=== PATIENT | female | born 1960 | race Caucasian/White ===

== ENCOUNTER 2019-05-28 08:48 | Day surgery (SDC) | payer OTHER ==
[2019-05-28 09:41] VITALS: BMI 34.2
[2019-05-28] MEDS ORDERED: SUCRALFATE 1 GM/10 ML UNIT DOSE CUPS PO ONE (11:15)
[2019-05-28 11:27] VITALS: TEMP 97.6
[2019-05-28 12:08] VITALS: PULSE 71
[2019-05-28 12:10] VITALS: BP 126/64
--- NOTE | 2019-06-01 15:52 | PATH ---
Surgical Pathology Report Patient Name: DEISI POPE [facility]. Rec. #: [id number] /Age/Gender: 1960 (Age: 58) / F Account: [id number] Location: [facility]-ENDOSCOPY Taken: 05/28/2019 Received: 05/29/2019 Reported: 06/01/2019 Physicians: Jairo Ma D.O. Specimen(s) Received A: BODY AND ANTRUM B: DUODENUM AND DUODENAL BULB C: CARDIA POLYP Clinical History Dyspepsia, GERD, history of H. Pylori Postoperative diagnosis: Gastritis Final Diagnosis A. STOMACH, BODY AND ANTRUM, BIOPSY: GASTRIC ANTRAL AND BODY MUCOSA WITH MILD CHRONIC GASTRITIS. IMMUNOHISTOCHEMICAL STAIN FOR H. PYLORI IS NEGATIVE. B. DUODENUM AND DUODENAL BULB, BIOPSY: DUODENAL MUCOSA WITH MILD CHRONIC DUODENITIS AND PRESERVED VILLOUS ARCHITECTURE. C. CARDIA POLYP, BIOPSY: FUNDIC GLAND POLYP. IMMUNOHISTOCHEMICAL STAIN FOR H. PYLORI IS NEGATIVE. Electronically Signed Lee Ann Camacho M.D. Gross Description A. Received in formalin, labeled "body and antrum biopsy" are 5 baer, irregular portions of soft tissue ranging from 0.2-0.5 cm. in greatest dimension. The specimens are submitted in toto in one cassette. B. Received in formalin, labeled "duodenum and duodenal bulb biopsy" are 2 baer, irregular portions of soft tissue measuring 0.2 and 0.4 cm. in greatest dimension. The specimens are submitted in toto in one cassette. C. Received in formalin, labeled "cardia polyp biopsy" are 3 baer, irregular portions of soft tissue averaging 0.4 cm. in greatest dimension. The specimens are submitted in toto in one cassette. DL/05/29/2019 saudi05/29/2019
== END 2019-05-28 12:00 | disposition home or self-care (01) ==
LOC: JASU-ENDO 08:48
PROVIDERS: ATTEND Internal Medicine Gastroenterology
PROC: 0DB68ZX Excision of Stomach, Via Natural or Artificial Opening Endoscopic, Diagnostic (ICD-10-PCS; 2019-05-28)
PROC: 0DB98ZX Excision of Duodenum, Via Natural or Artificial Opening Endoscopic, Diagnostic (ICD-10-PCS; principal; 2019-05-28 09:00)
DX: K29.50 Unspecified chronic gastritis without bleeding (principal); K29.80 Duodenitis without bleeding; E11.9 Type 2 diabetes mellitus without complications; Z79.84 Long term (current) use of oral hypoglycemic drugs
CPT/HCPCS: 82962; 88305-TC; 88342-TC

== ENCOUNTER 2022-11-21 05:19 | Day surgery (SDC) | payer OTHER ==
[2022-11-15 17:39] VITALS: BMI 34.2
[2022-11-21] MEDS ORDERED: MIDAZOLAM HCL 2 MG/2 ML SINGLE DOSE VIAL ONE (09:32)
[2022-11-21] MEDS ORDERED: ALBUTEROL SO4 HFA INHALER IH ONE (09:37)
[2022-11-21] MEDS ORDERED: LIDOCAINE 1%/EPI 1:100000 (20 ML MULTI DOSE VIAL) INF ONE (10:05)
[2022-11-21] MEDS ORDERED: PROPOFOL 20 ML ONE (10:05)
[2022-11-21] MEDS ORDERED: BUPIVACAINE HCL/PF 0.5% (5 MG/ML) 30 ML VIAL IJ ONE (10:06)
[2022-11-21] MEDS ORDERED: oxyCODONE HCL 5 MG TABLET PO PRN (10:30)
[2022-11-21] MEDS ORDERED: LACTATED RINGERS SOLUTION 1,000 ML IV SCH (10:30)
[2022-11-21] MEDS ORDERED: ACETAMINOPHEN INJECTION 100 ML IVPB ONE (10:32)
[2022-11-21] MEDS ORDERED: ACETAMINOPHEN 1000 MG/100 ML BAG IVPB ONE ×2 (10:34→10:44)
[2022-11-21 12:42] VITALS: RESP 18
[2022-11-21 12:45] VITALS: PULSE 72
[2022-11-21] MEDS ORDERED: ONDANSETRON 4 MG/2 ML VIAL ONE (13:21)
[2022-11-21] MEDS ORDERED: ONDANSETRON 4 MG/2 ML VIAL IVPB ONE (13:45)
[2022-11-21 14:04] VITALS: BP 120/58; TEMP 97
== END 2022-11-21 14:14 | disposition home or self-care (01) ==
LOC: JASU-SURG 05:19
PROVIDERS: ATTEND Orthopaedic Surgery
PROC: 0SBD4ZZ Excision of Left Knee Joint, Percutaneous Endoscopic Approach (ICD-10-PCS; principal; 2022-11-21 08:45)
DX: S83.232A Complex tear of medial meniscus, current injury, left knee, initial encounter (principal); X58.XXXA Exposure to other specified factors, initial encounter; Y93.89 Activity, other specified; Y92.89 Other specified places as the place of occurrence of the external cause; Y99.9 Unspecified external cause status
CPT/HCPCS: 82962; 94760

== ENCOUNTER 2023-01-08 07:45 | Day surgery (SDC) | payer OTHER ==
[2023-01-01 15:01] VITALS: BMI 32.7
[2023-01-08] MEDS ORDERED: VANCOMYCIN 1,000 MG VIAL (RESTRICTED TO ID ONLY) ONE (08:10)
[2023-01-08] MEDS ORDERED: THROMBIN (BOVINE) 5,000 UNIT VIAL TP ONE (08:10)
[2023-01-08] MEDS ORDERED: ceFAZolin SODIUM 1 GM VIAL ONE ×2 (08:10→10:07)
[2023-01-08] MEDS ORDERED: CEFAZOLIN 2 GM in DEXTROSE 5%-WATER - 50 ML IVPB ONE (08:13)
[2023-01-08] MEDS ORDERED: TRANEXAMIC ACID 1000 MG/10 ML VIAL IVPUSH ONE (08:13)
[2023-01-08] MEDS ORDERED: MIDAZOLAM HCL 2 MG/2 ML SINGLE DOSE VIAL ONE (08:45)
[2023-01-08] MEDS ORDERED: ONDANSETRON 4 MG/2 ML VIAL IVPUSH PRN (08:49)
[2023-01-08] MEDS ORDERED: ACETAMINOPHEN 1000 MG/100 ML BAG IVPB ONE (08:50)
[2023-01-08] MEDS ORDERED: oxyCODONE HCL 5 MG TABLET PO PRN (08:50)
[2023-01-08] MEDS ORDERED: KETOROLAC TROMETHAMINE 30 MG/1 ML VIAL IVPUSH SCH (09:00)
[2023-01-08] MEDS ORDERED: BUPIVACAINE HCL/PF 0.5% (5MG/ML) 10 ML VIAL ONE (09:04)
[2023-01-08] MEDS ORDERED: BUPIVACAINE LIPOSOME/PF (EXPAREL) 266 MG/20 ML VIAL ONE (09:04)
[2023-01-08] MEDS ORDERED: TRANEXAMIC ACID 1000 MG/10 ML VIAL ONE (10:07)
[2023-01-08] MEDS ORDERED: DEXAMETHASONE SOD PHOSPHATE 4 MG/1 ML VIAL ONE (10:07)
[2023-01-08] MEDS ORDERED: ONDANSETRON 4 MG/2 ML VIAL ONE (10:07)
[2023-01-08] MEDS ORDERED: PROPOFOL 20 ML ONE ×2 (10:11→10:16)
[2023-01-08] MEDS ORDERED: ACETAMINOPHEN INJECTION 100 ML IVPB ONE (12:50)
[2023-01-08] MEDS: oxyCODONE HCL 10 MG SUSTAINED ACTING TABLET PO SCH ×2 (14:45→21:20)
[2023-01-08] MEDS: oxyCODONE HCL 5 MG TABLET PO PRN ×3 (16:50→23:25)
[2023-01-08] MEDS: LACTATED RINGERS SOLUTION 1,000 ML IV SCH (17:16)
[2023-01-08] MEDS: glipiZIDE 10 MG TABLET (FP) PO SCH (17:17)
[2023-01-08] MEDS: CEFAZOLIN SODIUM 2 GM in DEXTROSE 5%-WATER 100 ML IVPB SCH (17:22)
[2023-01-08] MEDS: ACETAMINOPHEN 500 MG TABLET (FP) PO SCH ×2 (18:55→23:26)
[2023-01-08] MEDS: LISINOPRIL 5 MG TABLET PO SCH (21:19)
[2023-01-08] MEDS: SENNOSIDES/DOCUSATE COMBO (SENNA PLUS) TABLET (UD) PO SCH (21:20)
[2023-01-08] MEDS: EZETIMIBE 10 MG TABLET (FP) PO SCH (21:21)
[2023-01-08] MEDS: INSULIN (LEVEMIR) 100 UNITS/ML UNITS SQ SCH (21:21)
[2023-01-08] MEDS ORDERED: PATIENT'S OWN MEDICATION (NON-FORMULARY) (Icosapent Ethyl [Vascepa] 1 GM Capsule) PO SCH (22:00)
[2023-01-08] MEDS ORDERED: PATIENT'S OWN MEDICATION (NON-FORMULARY) (Insulin Detemir [Levemir Flexpen] 100 UNIT/ML In SQ SCH (22:00)
[2023-01-09] MEDS: CEFAZOLIN SODIUM 2 GM in DEXTROSE 5%-WATER 100 ML IVPB SCH (01:35)
[2023-01-09] MEDS: LEVOTHYROXINE NA 112 MCG TABLET (FP) PO SCH (06:17)
[2023-01-09] MEDS: ACETAMINOPHEN 500 MG TABLET (FP) PO SCH ×3 (06:46→18:30)
[2023-01-09 08:46] LABS: HEMATOCRIT 37.4 % (32.4-45.2); HEMOGLOBIN 12.5 G/dL (10.7-15.3); MCH 28.2 pg (25.7-33.7); MCHC 33.4 g/dl (32.0-36.0); MEAN CELL VOLUME 84.7 fl (80-96); MEAN PLT VOLUME 7.7 fl (7.5-11.1); PLATELET COUNT 247.5 10^3/uL (134-434); RBC 4.42 10^6/uL (3.60-5.2); RDW 14.1 % (11.6-15.6); WHITE BLOOD COUNT 9.6 10^3/uL (4.0-10.8)
[2023-01-09] MEDS ORDERED: ONDANSETRON 4 MG/2 ML VIAL IVPUSH PRN (08:47)
[2023-01-09] MEDS: oxyCODONE HCL 5 MG TABLET PO PRN (09:31)
[2023-01-09] MEDS ORDERED: PATIENT'S OWN MEDICATION (NON-FORMULARY) (Empagliflozin 25 MG Tablet) PO SCH (10:00)
[2023-01-09] MEDS: sitaGLIPtin PHOSPHATE 50 MG TABLET PO SCH (12:18)
[2023-01-09] MEDS: glipiZIDE 10 MG TABLET (FP) PO SCH ×2 (12:18→18:30)
[2023-01-09] MEDS: MULTIVITAMINS (DAILY MVI) TABLET (FP) PO SCH (12:18)
[2023-01-09] MEDS: PANTOPRAZOLE 40 MG TABLET PO SCH (12:18)
[2023-01-09] MEDS: ASPIRIN 325 MG TABLET PO SCH (12:18)
[2023-01-09] MEDS: oxyCODONE HCL 10 MG SUSTAINED ACTING TABLET PO SCH ×3 (12:18→21:19)
[2023-01-09] MEDS: SENNOSIDES/DOCUSATE COMBO (SENNA PLUS) TABLET (UD) PO SCH ×2 (12:36→21:19)
[2023-01-09] MEDS ORDERED: SCOPOLAMINE HYDROBROMIDE 1 PATCH PATCH.TD72 TD SCH (13:15)
[2023-01-09] MEDS: EZETIMIBE 10 MG TABLET (FP) PO SCH (21:19)
[2023-01-09] MEDS: LISINOPRIL 5 MG TABLET PO SCH (21:21)
[2023-01-09] MEDS: INSULIN (LEVEMIR) 100 UNITS/ML UNITS SQ SCH (21:22)
[2023-01-10 01:22] VITALS: RESP 18
[2023-01-10] MEDS: ACETAMINOPHEN 500 MG TABLET (FP) PO SCH ×3 (05:59→11:48)
[2023-01-10] MEDS: LEVOTHYROXINE NA 112 MCG TABLET (FP) PO SCH (06:00)
[2023-01-10] MEDS: oxyCODONE HCL 5 MG TABLET PO PRN ×2 (06:00→09:13)
[2023-01-10] MEDS: LACTATED RINGERS SOLUTION 1,000 ML IV SCH (06:30)
[2023-01-10] MEDS: ASPIRIN 325 MG TABLET PO SCH (07:50)
[2023-01-10 08:15] LABS: HEMATOCRIT 37.8 % (32.4-45.2); HEMOGLOBIN 12.4 G/dL (10.7-15.3); MCH 27.9 pg (25.7-33.7); MCHC 32.8 g/dl (32.0-36.0); MEAN CELL VOLUME 85.4 fl (80-96); MEAN PLT VOLUME 7.7 fl (7.5-11.1); PLATELET COUNT 268.4 10^3/uL (134-434); RBC 4.43 10^6/uL (3.60-5.2); RDW 14.1 % (11.6-15.6)
[2023-01-10] MEDS: MULTIVITAMINS (DAILY MVI) TABLET (FP) PO SCH (09:13)
[2023-01-10] MEDS: PANTOPRAZOLE 40 MG TABLET PO SCH (09:13)
[2023-01-10] MEDS: oxyCODONE HCL 10 MG SUSTAINED ACTING TABLET PO SCH (09:14)
[2023-01-10] MEDS: SENNOSIDES/DOCUSATE COMBO (SENNA PLUS) TABLET (UD) PO SCH (09:14)
[2023-01-10] MEDS ORDERED: FAMOTIDINE 20 MG TABLET PO SCH (10:00)
[2023-01-10] MEDS ORDERED: CALCIUM CARBONATE 650 MG TABLET PO PRN (10:45)
[2023-01-10] MEDS: sitaGLIPtin PHOSPHATE 50 MG TABLET PO SCH (11:48)
[2023-01-10] MEDS: glipiZIDE 10 MG TABLET (FP) PO SCH (11:49)
[2023-01-10 14:27] VITALS: BP 103/56; PULSE 77; TEMP 98.1
== END 2023-01-10 15:35 | disposition home health service (06) ==
LOC: FASUSAT 07:45 → EDSTATUS 09:30 → FM/S 13:31 → FASUSAT 01-10 15:35
PROVIDERS: ATTEND Orthopaedic Surgery
PROC: 8E0Y0CZ Robotic Assisted Procedure of Lower Extremity, Open Approach (ICD-10-PCS; 2023-01-08)
PROC: 0SRD0J9 Replacement of Left Knee Joint with Synthetic Substitute, Cemented, Open Approach (ICD-10-PCS; principal; 2023-01-08 10:20)
DX: M17.12 Unilateral primary osteoarthritis, left knee (principal)
CPT/HCPCS: 20985; 27447; C1776; S2900; 36415; 73560-TC-LT-FY; 82962; 85027; 87635; 94760; 97010-GP; 97116-GP; 97162-GP; C1713; C1889

== ENCOUNTER 2023-05-27 15:39 | Emergency (ER) | payer OTHER ==
[2023-05-27 16:19] VITALS: BP 134/57; PULSE 101; RESP 20; TEMP 98.8; BMI 32.9
[2023-05-27] MEDS ORDERED: IBUPROFEN 600 MG TABLET (FP) PO ONE ×2 (18:33→18:46)
[2023-05-27] MEDS ORDERED: OSELTAMIVIR PHOSPHATE 75 MG CAPSULE PO ONE (18:45)
[2023-05-27] MEDS ORDERED: OSELTAMIVIR PHOSPHATE 75 MG CAPSULE ONE (18:53)
== END 2023-05-27 20:43 | disposition home or self-care (01) ==
LOC: JERFT 15:39
DX: R50.9 Fever, unspecified (principal); R51.9 Headache, unspecified; R09.81 Nasal congestion; R05.9 Cough, unspecified; J06.9 Acute upper respiratory infection, unspecified; B97.89 Other viral agents as the cause of diseases classified elsewhere; J10.1 Influenza due to other identified influenza virus with other respiratory manifestations; Z20.822 Contact with and (suspected) exposure to COVID-19
CPT/HCPCS: 0241U-QW; 71046-TC-FY; 99284-25

== ENCOUNTER 2023-06-11 20:04 | Emergency (ER) | payer OTHER ==
[2023-06-11 20:23] VITALS: BP 124/59; PULSE 72; RESP 18; TEMP 98.9; BMI 30.9
[2023-06-11 21:38] LABS: BASO % 0.7 % (0-2.0); HEMATOCRIT 38.9 % (32.4-45.2); HEMOGLOBIN 12.8 GM/dL (10.7-15.3); MCH 26.9 pg (25.7-33.7); MEAN CELL VOLUME 81.6 fl (80-96); MEAN PLT VOLUME 7.7 fl (7.5-11.1); MONO % 9.3 % (3.8-10.2); PLATELET COUNT 352 10^3/uL (134-434); RBC 4.77 M/mm3 (3.60-5.2); RDW 14.7 % (11.6-15.6); WHITE BLOOD COUNT 11.1 K/mm3 (4.0-10.0)
[2023-06-11 22:00] LABS: POTASSIUM 4.1 mmol/L (3.5-5.1)
[2023-06-11 22:02] LABS: CALCIUM 8.9 mg/dL (8.5-10.1)
[2023-06-11 22:03] LABS: ALBUMIN 3.2 g/dl (3.4-5.0); BLOOD UREA NITROGEN 10.7 mg/dL (7-18)
[2023-06-11 22:07] LABS: BILIRUBIN,TOTAL 0.7 mg/dL (0.2-1)
[2023-06-11] MEDS ORDERED: AMOX TR/POT CLAV 875MG/125MG TABLETS (FP) PO ONE (22:07)
[2023-06-11] MEDS ORDERED: AMOX TR/POT CLAV 875MG/125MG TABLETS (FP) ONE (22:08)
== END 2023-06-11 22:32 | disposition home or self-care (01) ==
LOC: JER 20:04
DX: J01.90 Acute sinusitis, unspecified (principal); H10.9 Unspecified conjunctivitis; R09.81 Nasal congestion; R05.9 Cough, unspecified; R07.89 Other chest pain; R51.9 Headache, unspecified; R10.9 Unspecified abdominal pain; H57.89 Other specified disorders of eye and adnexa; Z20.822 Contact with and (suspected) exposure to COVID-19
CPT/HCPCS: 0241U-QW; 36415; 71046-TC-FY; 80053; 85025; 99284-25

== ENCOUNTER 2023-06-22 09:46 | Emergency (ER) | payer OTHER ==
[2023-06-22 09:56] VITALS: BP 124/59; PULSE 95; RESP 16; TEMP 97.7; BMI 30.9
[2023-06-22 10:08] LABS: EPI CELLS 3 /uL (0-25.1); HYALINE CASTS 0 /uL (0-3.1); PH,URINE 5.5 (5.0-8.0); URINE APPEARANCE CLOUDY; URINE BILIRUBIN NEGATIVE (NEGATIVE); URINE COLOR RED; URINE GLUCOSE (UA) 3+ (NEGATIVE); URINE KETONE NEGATIVE (NEGATIVE); URINE LEUK ESTERASE 2+ (NEGATIVE); URINE NITRITE POSITIVE (NEGATIVE); URINE PROTEIN 2+ (NEGATIVE); URINE UROBILINOGEN 0.2 mg/dL (0.2-1.0); URINE WBC 2802 /uL (0-25.8)
[2023-06-22 12:14] LABS: URINE BACTERIA 411 /uL (0-1359); URINE RBC 21784 /uL (0-23.9); YEAST NONE SEEN (NEGATIVE)
== END 2023-06-22 11:56 | disposition home or self-care (01) ==
LOC: JER 09:46
DX: R09.82 Postnasal drip (principal); N39.0 Urinary tract infection, site not specified; R31.9 Hematuria, unspecified; R05.9 Cough, unspecified; R30.0 Dysuria; R35.0 Frequency of micturition; R32 Unspecified urinary incontinence
CPT/HCPCS: 81003; 87086; 87186; 99283-25